=== PATIENT | female | born 1995 | race Caucasian/White ===

== ENCOUNTER 2020-10-25 06:21 | Inpatient (IN) | payer OTHER ==
[~2020-10-25] VITALS: Ht 177.8 cm; Wt 132.5 kg
--- NOTE | 2020-10-25 18:07 | PR ---
[facility] [address] [facility] [place] [address] Signed Progress Notes IP Datetime Report Generated by CPN: 10/25/2020 18:07 PROGRESS NOTES: [id number] Impression: Normal Progression of Labor Procedures: Artificial ROM Plan: Continue Present Management; Anticipate Vaginal Delivery VITAL SIGNS: [id number] Vital Signs: Reviewed; Within Normal Limits EXAM: [id number] Dilatation: 2.0 Effacement: 50 Station: -2 Contractions: rare MEMBRANES: [id number] Membranes Status: Ruptured Comments: Comfortable, not feeling contractions, Cytotec x3. Will continue monitoring FETUS A: [id number] FHR Baseline: 135 Variability: Moderate 6-25bpm Accelerations: 15X15 Presentation: Vertex FETUS B: [id number] Signing Physician: Shirlene Beck MD Copies: ~ *Electronically Signed* 10/25/201806 SHIRLENE BECK MD PATIENT NAME: SHELLY AMARAL PROGRESS NOTE DATE OF : 95 PHYSICIAN: SHIRLENE BECK MD RPT #: [id number] REPORT IS CONFIDENTIAL AND NOT TO BE RELEASED WITHOUT AUTHORIZATION
--- NOTE | 2020-10-26 07:17 | PR ---
[facility] [address] [facility] [place], [place] [address] Signed Progress Notes IP Datetime Report Generated by CPN: 10/26/2020 07:17 PROGRESS NOTES: [id number] Impression: Normal Progression of Labor Other Impressions: Slow progress Procedures: Intrauterine Pressure Catheter; Scalp Electrode Plan: Continue Present Management; Anticipate Vaginal Delivery VITAL SIGNS: [id number] Vital Signs: Reviewed; Within Normal Limits EXAM: [id number] Dilatation: 5.0 Effacement: 90 Station: -2 Contractions: rare MEMBRANES: [id number] Membranes Status: Ruptured ROM Note: Dr Beck notified of patient status. Comments: Comfortable with Epidural, may need Pitocin augmentation. FETUS A: [id number] FHR Baseline: 135 Variability: Moderate 6-25bpm Accelerations: 15X15 Presentation: Vertex FETUS B: [id number] Signing Physician: Shirlene Beck MD Copies: ~ *Electronically Signed* 10/26/20716 SHIRLENE BECK MD PATIENT NAME: SHELLY AMARAL PROGRESS NOTE DATE OF : 95 PHYSICIAN: SHIRLENE BECK MD RPT #: [id number] REPORT IS CONFIDENTIAL AND NOT TO BE RELEASED WITHOUT AUTHORIZATION
--- NOTE | 2020-10-26 09:16 | PR ---
[facility] [address] [facility] [place], [place] [address] Signed Progress Notes IP Datetime Report Generated by CPN: 10/26/2020 09:16 PROGRESS NOTES: [id number] Impression: Normal Progression of Labor Other Impressions: Slow progressions Procedures: Intrauterine Pressure Catheter; Scalp Electrode Plan: Augmentation VITAL SIGNS: [id number] Vital Signs: Reviewed; Within Normal Limits EXAM: [id number] Dilatation: 5.0 Effacement: 90 Station: -1 Contractions: rare MEMBRANES: [id number] Membranes Status: Ruptured ROM Note: Dr Beck notified of patient status. Comments: Patient comfortable after Epidural redose, but slow cervical change, contractions barely adequate. will try Pitocin Augmentation. FETUS A: [id number] FHR Baseline: 135 Variability: Moderate 6-25bpm Accelerations: 15X15 Presentation: Vertex FETUS B: [id number] Signing Physician: Claus Beck MD Copies: ~ *Electronically Signed* 10/26/20915 CLAUS BECK MD PATIENT NAME: SHELLY AMARAL ACT PROGRESS NOTE DATE OF : 95 PHYSICIAN: CLAUS BECK MD RPT #: [id number] REPORT IS CONFIDENTIAL AND NOT TO BE RELEASED WITHOUT AUTHORIZATION
--- NOTE | 2020-10-27 09:35 | PR ---
[facility] [address] [place] [address] Signed PP Progress Notes Datetime Report Generated by CPN: 10/27/2020 09:35 SUBJECTIVE: [id number] Pain: Within Normal Limits Nausea/Vomiting: Denies Vital Signs: [id number] Vital Signs: Reviewed; Within Normal Limits Abdomen/Uterus: Normal Lochia: Normal Extremities: Normal IMPRESSION/PLAN/PROCEDURES: [id number] Impression: Normal Progression Plan: Continue Present Management Procedures: None Progress Notes: Doing well, without complaint, except some cramping pains in left leg (lateral, around knee), started when Epidural wearing off, getting better now. Will follow. Signing Physician: Shirlene Beck MD Copies: ~ *Electronically Signed* 10/27/20 0935 SHIRLENE BECK MD PATIENT NAME: SHELLY AMARAL PROGRESS NOTE DATE OF : 95 PHYSICIAN: SHIRLENE BECK MD RPT #: [id number] REPORT IS CONFIDENTIAL AND NOT TO BE RELEASED WITHOUT AUTHORIZATION
--- NOTE | 2020-10-28 11:57 | PR ---
[facility] [address] [place] [address] Signed PP Progress Notes Datetime Report Generated by CPN: 10/28/2020 11:57 SUBJECTIVE: [id number] Pain: Within Normal Limits Nausea/Vomiting: Denies Vital Signs: [id number] Vital Signs: Reviewed; Within Normal Limits Notable Details: PP Hgb/HCt = 10.8/33.6 Abdomen/Uterus: Normal Lochia: Normal Extremities: Normal IMPRESSION/PLAN/PROCEDURES: [id number] Impression: Normal Progression Plan: Discharge Procedures: None Progress Notes: Doing well, without complaint, ready to go home. Signing Physician: Shirlene Beck MD Copies: ~ *Electronically Signed* 10/28/20 1157 SHIRLENE BECK MD PATIENT NAME: SHELLY AMARAL PROGRESS NOTE DATE OF : 95 PHYSICIAN: SHIRLENE BECK MD RPT #: [id number] REPORT IS CONFIDENTIAL AND NOT TO BE RELEASED WITHOUT AUTHORIZATION
== END 2020-10-28 12:17 | disposition home or self-care (01) | DRG 806 ==
LOC: FBC 06:21
PROVIDERS: ADMIT General Practice; ATTEND General Practice
PROC: 10907ZC Drainage of Amniotic Fluid, Therapeutic from Products of Conception, Via Natural or Artificial Opening (ICD-10-PCS; 2020-10-25)
PROC: 00HU33Z Insertion of Infusion Device into Spinal Canal, Percutaneous Approach (ICD-10-PCS; 2020-10-25)
PROC: 3E0R3BZ Introduction of Anesthetic Agent into Spinal Canal, Percutaneous Approach (ICD-10-PCS; 2020-10-25)
PROC: 3E0P7VZ Introduction of Hormone into Female Reproductive, Via Natural or Artificial Opening (ICD-10-PCS; 2020-10-25)
PROC: 10E0XZZ Delivery of Products of Conception, External Approach (ICD-10-PCS; principal; 2020-10-26)
PROC: 10H07YZ Insertion of Other Device into Products of Conception, Via Natural or Artificial Opening (ICD-10-PCS; 2020-10-26)
PROC: 0KQM0ZZ Repair Perineum Muscle, Open Approach (ICD-10-PCS; 2020-10-26)
PROC: 0UQMXZZ Repair Vulva, External Approach (ICD-10-PCS; 2020-10-26)
DX: O48.0 Post-term pregnancy (principal); O99.324 Drug use complicating childbirth; Z37.0 Single live birth; Z3A.40 40 weeks gestation of pregnancy; O77.0 Labor and delivery complicated by meconium in amniotic fluid; O99.344 Other mental disorders complicating childbirth; F32.9 Major depressive disorder, single episode, unspecified; F41.9 Anxiety disorder, unspecified; F43.10 Post-traumatic stress disorder, unspecified; F12.90 Cannabis use, unspecified, uncomplicated; O99.52 Diseases of the respiratory system complicating childbirth; J45.909 Unspecified asthma, uncomplicated; O70.1 Second degree perineal laceration during delivery; O71.82 Other specified trauma to perineum and vulva; Z87.891 Personal history of nicotine dependence; Z86.19 Personal history of other infectious and parasitic diseases; Z79.899 Other long term (current) drug therapy
CPT/HCPCS: 01960; 36415; 85027; A9270; J2001; J2405; J2590; J2795; J3010; J7121

== ENCOUNTER 2020-12-24 13:43 | Emergency (ER) | payer OTHER ==
[~2020-12-24] VITALS: Ht 177.8 cm; Wt 132.4 kg
--- OUTSIDE RECORDS SUMMARY | 2020-12-24 13:52 | XMS ---
PreManage Notification: SHELLY AMARAL Security Presser First Events No recent Security Events currently on file CRITERIA MET - [facility] Has Care Guidelines CARE PROVIDERS There are no care providers on record at this time. Guidelines Source: [facility] [employer] [place] Guidelines Date: 12/13/2019 Care Coordination: Member is currently not engaged in [facility] [employer] services. If Mental Health services are needed please contact: [place] [phone] [place]/ [place] [phone] [facility] [place] [phone] E.D. VISIT COUNT (12 MO.) 1 [facility] TOTAL 1 NOTE: Visits indicate total known visits. ED/UCC VISIT TRACKING (12 MO.) 12/24/2020 13:44 [facility] [place] TYPE: Emergency COMPLAINT: - VAGINAL PAIN INPATIENT VISIT TRACKING (12 MO.) 10/25/2020 06:21 [facility] [place] TYPE: [facility] COMPLAINT: - INDUCTION DIAGNOSES: - Personal history of nicotine dependence - Other mental disorders complicating childbirth - Diseases of the respiratory system complicating childbirth - Post-term - Post-traumatic stress disorder, unspecified - Single live - Drug use complicating childbirth - Personal history of nicotine dependence - 40 weeks gestation of - 40 weeks gestation of - Cannabis use, unspecified, uncomplicated - Encounter for full-term uncomplicated delivery - Post-traumatic stress disorder, unspecified - Other senior living (current) drug therapy - Anxiety disorder, unspecified - Drug use complicating childbirth - Labor and delivery complicated by meconium in amniotic fluid - Other specified trauma to perineum and vulva - Other mental disorders complicating childbirth - Major depressive disorder, single episode, unspecified - Second degree perineal laceration during delivery - Cannabis use, unspecified, uncomplicated - Other senior living (current) drug therapy - Personal history of other infectious and parasitic diseases - Second degree perineal laceration during delivery - Unspecified asthma, uncomplicated - Unspecified asthma, uncomplicated - Single live - Labor and delivery complicated by meconium in amniotic fluid - Anxiety disorder, unspecified - Other specified trauma to perineum and vulva - Personal history of other infectious and parasitic diseases - Diseases of the respiratory system complicating childbirth - Encounter for supervision of normal , unspecified, third trimester - Major depressive disorder, single episode, unspecified [email or web address]
[2020-12-24] MEDS ORDERED: VENTOLIN HFA18 GM INH (14:00)
== END 2020-12-24 18:59 | disposition home or self-care (01) ==
LOC: ED 13:43
DX: R10.2 Pelvic and perineal pain (principal); R11.2 Nausea with vomiting, unspecified; R19.7 Diarrhea, unspecified; J45.909 Unspecified asthma, uncomplicated
CPT/HCPCS: 74177; 80053; 81001; 84703; 85025; 99284-25; Q9967